=== PATIENT | female | born 1960 | race African-American/Black ===

== ENCOUNTER 2022-12-01 12:12 | Emergency (ER) | payer OTHER, MEDICAID, SELFPAY ==
--- NOTE | ~2022-12-01 | XR_ITS ---
EXAMINATION: XR knee LT min 4V DATE: 12/01/2022 13:16 INDICATION: Left knee injury. Fall. TECHNIQUE: 4 views of left knee were obtained. COMPARISON: None. FINDINGS: Bone alignment is normal. No fracture. There is mild tricompartmental osteoarthritis. There is chondrocalcinosis of the menisci. No knee joint effusion. IMPRESSION: 1. Mild left knee osteoarthritis. Reviewed, dictated and finalized at location A.
--- NOTE | 2022-12-01 12:17 | ED.FALL ---
HPI - Fall General Chief Complaint: Fall Stated Complaint: Fall Time Seen by Provider: 12/01/22 12:17 Source: patient Mode of arrival: ambulatory Limitations: no limitations History of Present Illness HPI Narrative: Patient is a 62 y/o Female that fell in her apartment building 11/29. Patient did not receive medical care at that time. Patient states she is now having pain all over including bilateral shoulders and knees and back/neck. Patient also states the fall broke teeth off of her top dentures but denies any trauma to the rest of her face. Unsure if she had LOC. Family was present and helped her up. Patient has used tylenol with no relief. Denies any headache, vision changes, numbness or tingling to extremities, nausea or vomiting. Patient denies any weakness to extremities. Concerned with left knee pain due to previous surgery. Related Data Home Medications Medication Instructions Recorded Confirmed allopurinol 300 mg tablet 300 mg PO DIRECTED 12/01/22 12/01/22 dapagliflozin propanediol 5 mg 5 mg PO DAILY 12/01/22 12/01/22 tablet (Farxiga) losartan 100 mg tablet 100 mg PO DAILY 12/01/22 12/01/22 Allergies Allergy/AdvReac Type Severity Reaction Status Date / Time Penicillins Allergy Itching Verified 12/01/22 12:49 ibuprofen AdvReac Nausea and Verified 12/01/22 12:55 Vomiting Review of Systems Review of Systems: All systems reviewed & are unremarkable except as noted in HPI and below Constitutional: Constitutional: Denies body ache(s), Denies chills, Denies fatigue, Denies fever(s), Denies headache(s), Denies malaise and Denies weakness Eyes: Eyes: Denies blurry vision, Denies irritation and Denies loss of vision ENT: Denies otalgia, Denies headache(s), Denies nasal discharge, Denies sinus pain and Denies sore throat Cardiovascular: Cardiovascular: Denies chest pain, Denies irregular heart rhythm and Denies dyspnea Respiratory: Respiratory: Denies dyspnea Gastrointestinal: Gastrointestinal: Denies abdominal pain, Denies melena, Denies hematochezia, Denies diarrhea, Denies nausea and Denies vomiting Musculoskeletal: Musculoskeletal: Reports back pain, Denies myalgias and Reports arthralgias Integumentary/Breasts: Skin/Breast: Denies pruritus and Denies rash Neurologic: Denies headache(s), Denies loss of vision and Denies weakness Psychiatric: Psychiatric: Reports no additional psychiatric complaints Endocrine: Endocrine: Denies fatigue PMFSH Comments At time of signature, agree with nursing past medical, surgical, social and family history. There is no relevant family history pertinent to the presenting complaint. Exam Const: General: cooperative, healthy appearing, comfortable, no acute distress and well nourished Nutritional Appearance: well nourished Orientation/consciousness: patient oriented x3 Limitations: no limitations HENMT: Head: normal to inspection, normocephalic and atraumatic Ears: hearing grossly normal bilaterally and external ears normal Face/Nose/Sinus: Normal external nose present, normal facial exam and face symmetric Face and sinus: normal facial exam and face symmetric Mouth: Yes lip normal Teeth and gingiva: other (front teeth of upper dentures not attached) Eyes: General: appearance normal, both eyes and all related structures Alignment and Position: alignment normal and position normal Periorbital: periorbital findings normal Eyelids: eyelids normal Pupils: Equal, round and reactive pupils present EOM: EOMs intact bilaterally Neck: Neck: normal visual inspection, full ROM, no lymphadenopathy and supple Chest: Chest palpation & inspection: normal inspection of the chest Resp: Effort & Inspection: normal respiratory effort and able to speak in complete sentences Auscultation: clear to auscultation bilaterally Cardio: Rate: regular rate Rhythm: regular rhythm Heart sounds: S1 normal heart sound present and S2 normal heart sound present GI: Inspection: normal
[2022-12-01 12:34] VITALS: BP 154/79; PULSE 86; RESP 14; TEMP 36.6; O2SAT 100
== END 2022-12-01 13:38 | disposition home or self-care (01) ==
PROVIDERS: Emergency Provider Nurse Practitioner Family
DX: M54.2 Cervicalgia (principal); M54.50 Low back pain, unspecified; M25.562 Pain in left knee; M25.561 Pain in right knee; M25.512 Pain in left shoulder; M25.511 Pain in right shoulder; W19.XXXA Unspecified fall, initial encounter; I10 Essential (primary) hypertension; M10.9 Gout, unspecified; E11.9 Type 2 diabetes mellitus without complications; Z79.84 Long term (current) use of oral hypoglycemic drugs
CPT/HCPCS: 73564; 99203; G0463